=== PATIENT | male | born 2000 | race Hispanic/Latino ===

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

== ENCOUNTER 2021-08-09 16:46 | Emergency (ER) | payer SELFPAY ==
[2021-08-09] MEDS ORDERED: diphenhydrAMINE 12.5 MG/5 ML UDCUP ONE (17:03)
[2021-08-09] MEDS ORDERED: diphenhydrAMINE 50 MG/ML VIAL ONE (17:04)
[2021-08-09] MEDS ORDERED: Metoclopramide HCl 10 MG/2 ML VIAL ONE (17:07)
[2021-08-09 17:32] LABS: #Eosinphils 0.1 thou/uL (0.0-0.7); #Lymphocytes 1.3 thou/uL (1.20-3.40); #Monocytes 0.5 thou/uL (0.11-0.59); #Neutrophils 8.2 thou/uL (1.40-6.50); %Basophils 0.2 % (0.0-1.0); %Eosinophils 1.3 % (0.0-10.0); %Lymphocytes 12.7 % (28.0-48.0); %Neutrophils 80.8 % (31.0-61.0); Hemoglobin 16.5 g/dL (14.0-18.0); Mean Corpuscular HGB CONC 34.6 g/dL (32.0-36.0); Mean Corpuscular Hemoglobin 30.9 pg (25.0-35.0); Mean Corpuscular Volume 89.3 fL (78.0-98.0); Platelet Count 133 thou/uL (130-400); RBC Distribution Width 11.6 % (11.5-14.5); Red Blood Cell (RBC) Count 5.35 mill/uL (4.00-5.20); White Blood Cell (WBC) Count 10.2 thou/uL (4.8-10.8)
[2021-08-09 17:50] LABS: ALT (SGPT) 32 U/L (8-55); AST (SGOT) 25 U/L (5-34); Albumin 4.5 g/dL (3.5-5.0); Alkaline Phosphatase 81 U/L (50-130); Anion Gap 17 mmol/L (10-20); BUN (Urea Nitrogen) 20 mg/dL (8.9-20.6); Bilirubin, Total 1.1 mg/dL (0.2-1.2); CK (CPK) 194 U/L (30-200); Calc. Creatinine Clearance 0 mL/min (70-130); Calcium 9.6 mg/dL (7.8-10.44); Carbon Dioxide 16 mmol/L (22-29); Chloride 110 mmol/L (98-107); Globulin 2.6 g/dL (2.4-3.5); Glucose 111 mg/dL (70-105); Large Platelets SLIGHT; Potassium 3.6 mmol/L (3.5-5.1); Protein, Total 7.1 g/dL (6.0-8.3); Sodium 139 mmol/L (136-145)
[2021-08-09 18:39] LABS: SARS-CoV-2 NAA Rapid Test DETECTED (NotDetected)
== END 2021-08-09 18:57 | disposition home or self-care (01) ==
LOC: ERS 16:46
DX: U07.1 COVID-19 (principal); E86.0 Dehydration; J45.909 Unspecified asthma, uncomplicated
CPT/HCPCS: 70450; 80053; 82550; 85025; 96361; 96374; 96375; J1200; J2765; Q0163; U0002